=== PATIENT | female | born 1990 | race Caucasian/White ===

== ENCOUNTER 2016-11-02 15:20 | Emergency (ER) | payer MEDICAID ==
[~2016-11-02] VITALS: Ht 152.4 cm; Wt 76.8 kg
[~2016-11-02 15:20] MED LIST: ATARAX 10MG10 MG/TAB PO; B6-FOLIC ACID1 CAP PO; CEFTIN 250250 MG/TAB PO; CEFTIN500 MG PO; FLINTSTONES1 CTB PO; MACROBID 1100 MG/CAP; MICONAZOLE VG; NO HOME MEDICATIONS; OXY IR5 MG; PERCOCET 325 MG1 TA2 PO; PRENATAL1 TA1 PO; PROMETHAZINE12.5 M5 PO; PROTONIX20 MG PO; PYRIDIUM200 M1 PO; ULTRAM 50MG TAB50 MG PO; ZOFRAN 4MG T4 MG/TAB PO; ZOFRAN8 MG PO
[2016-11-02 15:21] VITALS: TEMP 98.3
[2016-11-02] MEDS ORDERED: ZOLOFT 50MG50 MG PO (15:24)
[2016-11-02] MEDS ORDERED: XANAX .25M0.25 MG/TA PO (15:24)
[2016-11-02 17:07] LABS: AMPHETAMINE URINE NEGATIVE; BARBITURATES URINE NEGATIVE; BENZODIAZEPINES URINE NEGATIVE; BUPRENORPHINE URINE NEGATIVE; METHADONE URINE NEGATIVE; OPIATES URINE NEGATIVE; OXYCODONE URINE NEGATIVE; PHENCYCLIDINE URINE NEGATIVE; PROPOXYPHENE URINE NEGATIVE; THC CANNABINOIDS URINE NEGATIVE
[2016-11-02 17:17] LABS: BASO % 0.5 % (0.0-2.0); EOS % 0.5 % (0-4.0); GRAN # 5.9 (1.4-6.5); GRAN % 77.3 % (42.2-75.2); HEMOGLOBIN 14.9 g/dl (12.5-16.0); LYMPH # 1.4 (1.2-3.4); LYMPH % 17.6 % (20.0-51.0); MEAN CELL VOLUME 88 fl (80.0-100.0); MEAN CORPUSCULAR HEMOGLOBIN 30 pg (27.0-31.0); MEAN CORPUSCULAR HGB CONC 34 g/dl (33.0-37.0); MEAN PLATELET VOLUME 10.3 fl (7.4-10.4); MONO # 0.3 (0.1-0.6); PLATELET COUNT 288 K/mm3 (130-400); WHITE BLOOD COUNT 7.7 K/mm3 (4.8-10.8)
[2016-11-02 17:19] LABS: ADJUSTED CALCIUM 9.1 mg/dL (8.4-10.2); ALANINE AMINOTRANSFERASE 66 U/L (9-52); ALBUMIN 4.5 gm/dL (3.5-5.0); ALKALINE PHOSPHATASE 89 U/L (50-136); ANION GAP 12 mmol/L (7-16); BILIRUBIN,TOTAL 0.6 mg/dL (0.0-1.0); BLOOD UREA NITROGEN 14 mg/dL (7-17); CALCIUM 9.5 mg/dL (8.4-10.2); CARBON DIOXIDE 26 mmol/L (22-30); CHLORIDE 103 mmol/L (98-107); CREATININE, serum 0.82 mg/dL (0.52-1.25); GLUCOSE 92 mg/dL (74-106); POTASSIUM 4.2 mmol/L (3.4-5.0); SODIUM 141 mmol/L (137-145); TOTAL PROTEIN 8.1 gm/dL (6.4-8.2)
[2016-11-02 17:20] LABS: ACETAMINOPHEN < 10 ug/mL (10-30); SALICYLATE < 1.0 mg/dL
[2016-11-02 21:46] VITALS: BP 115/68; PULSE 65
== END 2016-11-02 21:48 | disposition home or self-care (01) ==
LOC: COL.ER 15:20
PROVIDERS: Physician Assistant
DX: F41.9 Anxiety disorder, unspecified (principal); F33.1 Major depressive disorder, recurrent, moderate; Z59.0 Homelessness

== ENCOUNTER 2016-12-29 07:33 | Emergency (ER) | payer MEDICAID ==
[~2016-12-29] VITALS: Ht 149.9 cm; Wt 77.7 kg
[~2016-12-29 07:33] MED LIST changes: +XANAX .25M0.25 MG/TA PO; +ZOLOFT 50MG50 MG PO
[2016-12-29 07:35] VITALS: BP 130/66; PULSE 75; TEMP 97.8
== END 2016-12-29 07:57 | disposition home or self-care (01) ==
LOC: COL.ER 07:33
DX: M25.561 Pain in right knee (principal)
CPT/HCPCS: L1830

== ENCOUNTER 2017-01-20 18:19 | Emergency (ER) | payer MEDICAID ==
[~2017-01-20] VITALS: Ht 152.4 cm; Wt 75.9 kg
[2017-01-20 18:34] VITALS: BP 99/61; TEMP 97.7
[2017-01-20 19:10] VITALS: PULSE 66
== END 2017-01-20 19:10 | disposition home or self-care (01) ==
LOC: COL.ER 18:19
DX: S93.501A Unspecified sprain of right great toe, initial encounter (principal); K21.9 Gastro-esophageal reflux disease without esophagitis; F17.210 Nicotine dependence, cigarettes, uncomplicated; F12.99 Cannabis use, unspecified with unspecified cannabis-induced disorder; Z90.49 Acquired absence of other specified parts of digestive tract; Z98.890 Other specified postprocedural states; W15.XXXA Fall from cliff, initial encounter; Y93.39 Activity, other involving climbing, rappelling and jumping off